=== PATIENT | female | born 1990 | race Caucasian/White ===

== ENCOUNTER 2023-12-20 11:55 | Day surgery (SDC) | payer OTHER, SELFPAY ==
--- NOTE | 2023-12-20 | PATH_ITS ---
[facility] Accession Number: [id number] No. of containers..03 Tissue . 01 Material submitted: . PART A: gastrointestinal site - GASTRIC PART B: duodenum - DUODENAL PART C: colon - RANDOM COLON . 01 Clinical history: . A: RULE OUT H.PYLORI B: RULE OUT CELIAC C: RULE OUT COLITIS . 01 Diagnosis: A. STOMACH, BIOPSY: Gastric body mucosa with no diagnostic abnormality. No evidence of Helicobacter organisms on H/E stain. Negative for intestinal metaplasia. Negative for dysplasia or malignancy. . B. DUODENUM, BIOPSY: Small bowel mucosa with no diagnostic abnormality. Negative for active inflammation, features of sprue, dysplasia, or malignancy. . C. RANDOM COLON, BIOPSY: Colonic mucosa with no diagnostic abnormality. Negative for active, chronic, and microscopic colitis. Negative for dysplasia and malignancy. . MR 12/22/2023 1530 Local . 01 Electronically signed: . aBo Sandoval MD, PhD, Pathologist NPI- [id number] . 01 Gross description: . Part A: GASTRIC: Received in formalin is 1 fragment(s) of dillon, soft tissue measuring 0.1 x 0.1 x 0.1 cm submitted entirely in 1 cassette(s) Part B: DUODENAL: Received in formalin are 2 fragment(s) of dillon, soft tissue measuring 0.1 x 0.1 x 0.1 cm to 0.3 x 0.2 x 0.2 cm submitted entirely in 1 cassette(s) Part C: RANDOM COLON: Received in formalin are multiple fragment(s) of dillon, soft tissue measuring 0.1 x 0.1 x 0.1 cm to 0.3 x 0.3 x 0.2 cm submitted entirely in 1 cassette(s) /MAI 12/21/2023 1916 Local . 01 Pathologist provided ICD-10: K30, R19.4, R10.13 . 01 CPT . 198392, 450322, [id number] Specimen Comment: A courtesy copy of this report has been sent to [phone] Performed at: 01 [facility] [address] [place] [address] [id number] MD Robert Cedeño MD Phone: [phone]
[2023-12-20 12:39] VITALS: BP 107/68; PULSE 75; RESP 16; TEMP 36.6; O2SAT 100
--- NOTE | 2023-12-20 12:40 | PM.HP.1 ---
History of Present Illness History of Present Illness Date Patient Seen: 12/20/23 Chief complaint: EGD/Colonoscopy Narrative: Change in bowel movements/diarrhea and severe heartburn PFSH Medical History (Updated 12/20/23 @ 11:28 by Faye Watson, RN) Hx of hemorrhoids Surgical History (Updated 12/20/23 @ 11:28 by Faye Watson, RN) Hx of breast augmentation (~2017) History of loop electrical excision procedure (LEEP) (~2017) Meds Home Medications and Allergies Home Medications Medication Instructions Recorded Confirmed Type amitriptyline 10 mg tablet 10 mg PO ONCE PM panic attack 12/20/23 12/20/23 History buspirone 5 mg tablet 5 mg PO 3XD 12/20/23 12/20/23 History metformin 500 mg tablet 500 mg PO BID 12/20/23 12/20/23 History pantoprazole 20 mg tablet,delayed 20 mg PO QAM heartburn 12/20/23 12/20/23 History release semaglutide 0.25 mg or 0.5 mg (2 0.25 mg SUBCUT WEEKLY 12/20/23 12/20/23 History mg/3 mL) subcutaneous pen injector (Ozempic) Allergies Allergy/AdvReac Type Severity Reaction Status Date / Time No Known Drug Allergies Allergy Verified 12/20/23 11:31 Exam Narrative Exam Narrative: Oropharynx free of lesions Chest clear to auscultation percussion Cardiac exam reveals no S3 or murmur Assessment & Plan Assessment & Plan narrative: History of change in bowel movement primarily with loose stools rule out underlying colitis. In addition severe GE reflux with breakthrough even on PPI rule out underlying esophagitis. Risks, benefits, alternatives have been explained.
--- NOTE | 2023-12-20 12:41 | PM.OP.EC ---
Operative Date/Time/Diagnoses Date of procedure: 12/20/23 Pre-op diagnosis: See indication and findings Procedure & Clinicians Study performed: EGD and colonoscopy Indications: Loose stools and heartburn Surgeon: Teddy Dennison Procedure Notes Procedure in detail: After informed consent was obtained patient was placed in left lateral decubitus position. The video upper scope was placed into the oropharynx and with the patient's help swallowed into the esophagus. The esophagus stomach and duodenum were carefully examined. On withdrawal retroflexed view the GE junction was performed. The scope was removed. The patient tolerated procedure well. The patient was then turned and the colonoscope substituted. This introduced the rectum slowly advanced cecum. On slow withdrawal mucosa was carefully examined. The scope was removed. The patient tolerated procedure well. Blood loss none Complications none Sedation mac Findings EGD 1. 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 Wide open lower esophageal sphincter without esophagitis 3. Patchy gastric erythema particularly in the antrum biopsies taken to rule out Helicobacter 4. Normal duodenal bulb and sweep biopsies taken to rule out celiac Colonoscopy 1. Normal colonoscopy to cecum. Random biopsies taken to rule out microscopic colitis Will await biopsies and contact the patient. The Renuka may be contributing to her sense of chest discomfort and reflux. I have sent in a prescription for Diflucan to take for 2 weeks.
[2023-12-20] MEDS: LACTATED RINGERS 1,000 ML 42 ML IV (13:02)
[2023-12-20 14:06] VITALS: BP 108/71; PULSE 72; RESP 18; TEMP 36.6; O2SAT 99
[2023-12-20 14:10] VITALS: BP 110/77; PULSE 75; RESP 20; O2SAT 100
[2023-12-20 14:15] VITALS: BP 104/71; PULSE 75; RESP 12; TEMP 36.7; O2SAT 98
[2023-12-20 14:48] VITALS: BP 90/55; PULSE 62; RESP 16; TEMP 36.7; O2SAT 99
== END 2023-12-20 15:12 | disposition home or self-care (01) ==
PROVIDERS: Referring Provider Internal Medicine Gastroenterology; Visit Provider Internal Medicine Gastroenterology
PROC: 0DJ08ZZ Inspection of Upper Intestinal Tract, Via Natural or Artificial Opening Endoscopic (ICD-10-PCS; CPT 45380; principal; 2023-12-20 13:00)
PROC: 0DJD8ZZ Inspection of Lower Intestinal Tract, Via Natural or Artificial Opening Endoscopic (ICD-10-PCS; CPT 45378; 2023-12-20 13:00)
DX: R12 Heartburn (principal); R19.7 Diarrhea, unspecified
CPT/HCPCS: 45380; 43239; J2704